=== PATIENT | male | born 1980 | race Caucasian/White ===

== ENCOUNTER 2020-07-09 17:59 | Inpatient (IN) | payer OTHER, MEDICAID, SELFPAY ==
[~2020-07-09] VITALS: Ht 154.9 cm; Wt 78.0 kg
[2020-07-09 18:22] VITALS: BP_SYST 111
--- NOTE | 2020-07-09 18:30 | NUR ---
Pt O2 89 % room air, pt placed on 2L NC, O2 increased to 95 %.
--- NOTE | 2020-07-09 18:30 | NUR ---
Patient triaged and placed in waiting room. VSS and patient appears in no acute distress at this time. Accompanied by family memer, awaiting available bed, and MD notified of need for MSE.
[2020-07-09 18:47] LABS: BASOPHILS % (AUTO) 0.2 % (0.0-2.0); HEMATOCRIT 43.7 % (36-54); HEMOGLOBIN 14.6 g/dL (14.0-18.0); LYMPHOCYTES # (AUTO) 1.5 K/uL (1.0-5.5); LYMPHOCYTES % (AUTO) 32.2 % (20.5-51.5); MEAN CORPUSCULAR HEMOGLOBIN 33 pg (27-31); MEAN CORPUSCULAR HGB CONC 33 % (32-36); MEAN CORPUSCULAR VOLUME 97 fL (79.0-98.0); MONOCYTES # (AUTO) 0.4 K/uL (0.0-1.0); MONOCYTES % (AUTO) 9.7 % (1.7-9.3); NEUTROPHILS # (AUTO) 2.6 K/uL (1.8-7.7); NEUTROPHILS % (AUTO) 57.9 % (40.0-70.0); PLATELET COUNT (AUTO) 240 K/uL (130-430); RED BLOOD CELL COUNT(AUTO) 4.49 MIL/uL (4.2-6.2); RED CELL DISTRIBUTION WIDTH 14.1 % (9.0-15.0); WHITE BLOOD COUNT (AUTO) 4.6 K/uL (4.8-10.8)
[2020-07-09 19:03] LABS: CREATININE 1.32 mg/dL (0.55-1.30); POTASSIUM 3.8 mmol/L (3.5-5.1)
--- NOTE | 2020-07-09 19:05 | NUR ---
Report given to Kaylan PABON
[2020-07-09 19:08] LABS: C-REACTIVE PROTEIN QUANT 4.8 mg/dL (0-0.5)
[2020-07-09 19:18] LABS: ALBUMIN 3.2 g/dL (3.4-4.8); TOTAL BILIRUBIN 0.6 mg/dL (0.0-1.0)
--- NOTE | 2020-07-09 19:20 | NUR ---
PT BIB FAMILY FROM HOME C/O OF DRY COUGH THAT PREVIOUSLY PRODUCED ORANGE COLOR SPUTUM FOR 3 DAYS. PT IS NAUSEOUS, VOMITING, AND HAS HAD DIARRHEA SINCE YESTERDAY. PT WAS EXPOSED TO COVID 6 DAYS AGO. PT PULSE OX AT HOME WAS 85% ON ROOM AIR. PT HAS DOWN SYNDROME AND IS UNABLE TO COMMUNICATE HIMSELF.
--- NOTE | 2020-07-09 19:36 | NUR ---
ER Dr. AWAN at bedside examining patient.
[2020-07-09 19:52] LABS: CKMB RELATIVE INDEX 0.2 (0.0-2.9); CREATINE KINASE MB 2.5 ng/mL (0-3.6)
[2020-07-09 20:14] LABS: PROTHROMBIN TIME 10.1 SECS (9.5-12.5)
[2020-07-09] MEDS ORDERED: AZITHROMYCIN 500 MG in NS 250 ML IV ONE (21:30)
[2020-07-09] MEDS ORDERED: cefTRIAXone 1 GM IVPB PREMIX 50 ML IV ONE (21:30)
--- NOTE | 2020-07-09 21:46 | NUR ---
Patient will be admitted to care of [facility]. Admitted to TELE unit. Will go to room 123B. Belongings list completed. Complete and up to date summary report printed. SBAR report to be given at bedside with opportunity for questions.
--- NOTE | 2020-07-09 22:00 | NUR ---
Patient's code status is FULL CODE per primary caregiver, paperwork completed and placed in chart.
--- NOTE | 2020-07-09 22:23 | NUR ---
Patient to ER CHAIR RASHARD.
--- NOTE | 2020-07-09 22:35 | NUR ---
# 20 gauge angiocath placed to LEFT HAND. Use of asceptic technique. Opsite placed over site. Blood return noted. Flushed with 10 cc of normal saline. No evidence of infiltration noted. Patient tolerated well.
[2020-07-09] MEDS: D5/0.45 NS 1,000 ML IV SCH (22:55)
[2020-07-09] MEDS ORDERED: AZITHROMYCIN 500 MG/VIAL (ZITHROMAX) IV ONE (22:57)
--- NOTE | 2020-07-09 23:03 | NUR ---
PT UNABLE TO GIVE URINE RIGHT NOW.
--- NOTE | 2020-07-09 23:08 | NUR ---
DR. CANCHOLA AT [facility] TO EVALUATE PATIENT.
--- NOTE | 2020-07-09 23:39 | NUR ---
Transfer to TELE via ACLS protocol. Licensed nurse present. IV present no signs or symptoms of infiltration.
[2020-07-09 23:50] VITALS: BP_SYST 127
--- NOTE | 2020-07-09 23:50 | NUR ---
ADMISSION NOTE Received patient from ER via WHEELCHAIR, received report from TALAT PABON. Patient admitted with diagnosis of COVID PNA. Patient oriented to hospital routine, call light, toileting and safety.
--- NOTE | 2020-07-10 00:15 | NUR ---
spoke with patients sister to give her an update on moving patient to TELE floor. she also gave me a list of medications patient takes at home daily.
--- NOTE | 2020-07-10 00:16 | NUR ---
patient able to eat regular foods on his own.
[2020-07-10] MEDS ORDERED: GLIP10TA21 PO (00:18)
[2020-07-10] MEDS ORDERED: DIPH25TA62 PO (00:19)
[2020-07-10] MEDS ORDERED: BENZ0.5T43 PO (00:19)
[2020-07-10] MEDS ORDERED: LEVO50TA8 PO (00:19)
[2020-07-10] MEDS ORDERED: ATOR20TA64 PO (00:19)
[2020-07-10] MEDS ORDERED: ARIP15TA PO (00:19)
--- NOTE | 2020-07-10 00:19 | NUR ---
Medication reconciliation completed with information provided by patients sister. Any prior medication reconciliation on file was reviewed and corrected.
--- NOTE | 2020-07-10 00:30 | NUR ---
PAGED DR MELGOZA
--- NOTE | 2020-07-10 00:51 | NUR ---
CONSULTATION PAGED/CALLED Reason for Consultation: COVID PNA Person Who was Notified: ER NOTIFIED DOCTOR Consulting Physician: DR. GRIJALVA Technical Sales Consultant Specialty: ID Ordering Physician: ABAD
--- NOTE | 2020-07-10 00:52 | NUR ---
CONSULTATION PAGED/CALLED Reason for Consultation: COVID PNA Person Who was Notified: ER NOTIFIED EXCHANGE Consulting Physician: DR CANCHOLA Technical Writing Lead/Mgr Specialty: Ordering Physician: ABAD
--- NOTE | 2020-07-10 01:00 | NUR ---
RN ROUNDS PATIENT TOLERATING IVF TO LEFT HAND #20, PATIENT CONFUSED AND NONVERBAL/GARBLED SPEECH. PATIENT CONTINUES TO CALL FOR HIS MOM. REORIENTED PATIENT.
--- NOTE | 2020-07-10 01:30 | NUR ---
SPOKE WITH FAMILY CALLED SISTER MANDI , to clarify patients home medications. Sister states she wants to facetime with patient in the am. Will endorse to AM nurse.
--- NOTE | 2020-07-10 04:30 | NUR ---
PAGED DR MELGOZA. LEFT VOICE MAIL MESSAGE.'
--- NOTE | 2020-07-10 04:35 | NUR ---
PAGED PAGED DOCTOR MELGOZA
--- NOTE | 2020-07-10 06:40 | NUR ---
CLOSING NOTES. PATIENT STABLE AT THIS TIME. RESIRATIONS EVEN AND UNLABORED ON OXYGEN 3L NC. OXYGEN SATURATION 94% IV SITE REMAINS INTACT WITH NO SIGNS OF INFILTRATION NOTED. SAFETY MEASURES AND ISOLATION PRECAUTIONS IN PLACE. BED LOCKED IN LOW POSITION WITH CALL LIGHT IN REACH. WILL CONTINUE TO MONITOR UNTIL ENDORSED TO AM NURSE.
[2020-07-10] MEDS ORDERED: PROMETHAZINE-DM 6.25 MG-15 MG/5 ML UDC PO PRN (07:45)
[2020-07-10] MEDS ORDERED: ACETAMINOPHEN 325 MG TABLET PO PRN (07:45)
[2020-07-10 07:54] VITALS: BP_SYST 117
[2020-07-10 07:59] LABS: BASOPHILS % (AUTO) 0.2 % (0.0-2.0); EOSINOPHILS % (AUTO) 0.1 % (0.0-4.0); HEMATOCRIT 39.8 % (36-54); HEMOGLOBIN 13.4 g/dL (14.0-18.0); LYMPHOCYTES # (AUTO) 2.4 K/uL (1.0-5.5); LYMPHOCYTES % (AUTO) 48.2 % (20.5-51.5); MEAN CORPUSCULAR HEMOGLOBIN 33 pg (27-31); MEAN CORPUSCULAR HGB CONC 34 % (32-36); MEAN CORPUSCULAR VOLUME 97 fL (79.0-98.0); MONOCYTES # (AUTO) 0.6 K/uL (0.0-1.0); MONOCYTES % (AUTO) 12.9 % (1.7-9.3); NEUTROPHILS # (AUTO) 1.9 K/uL (1.8-7.7); NEUTROPHILS % (AUTO) 38.6 % (40.0-70.0); PLATELET COUNT (AUTO) 233 K/uL (130-430); RED BLOOD CELL COUNT(AUTO) 4.11 MIL/uL (4.2-6.2); RED CELL DISTRIBUTION WIDTH 14.2 % (9.0-15.0)
--- NOTE | 2020-07-10 08:00 | NUR ---
Patient awake/alert no SOB but oxygen saturation on 2.5 liters/nc 92%, follow simple instruction pleasant denies any pain , tolerates all oral intake/medication , keep with IV hydration, safety/fall precaution initiated.
[2020-07-10] MEDS: LEVOTHYROXINE SODIUM 0.05 MG TABLET PO SCH (08:06)
[2020-07-10] MEDS: glipiZIDE XL 5 MG TAB ( GLUCOTROL XL) PO SCH ×2 (08:06→17:06)
[2020-07-10] MEDS: BENZTROPINE MESYLATE 1 MG TABLET PO SCH ×2 (08:08→20:31)
[2020-07-10] MEDS: ARIPiprazole 5 MG TAB PO SCH (08:08)
[2020-07-10] MEDS ORDERED: ARIPiprazole 5 MG TAB ONE (08:08)
--- NOTE | 2020-07-10 08:33 | NUR ---
Nutrition Update Eulogio Scale 18 noted. Pt admitted for COVID pneumonia. Diet: [facility] BMI: 32.5 kg/m2 RD to follow per nutrition care standards. Addendum: 07/10/20 at [address] CORRECTION: Diet: [facility], mechanical soft
[2020-07-10] MEDS: ALBUTEROL MDI INHALATION 8 GM INH INH SCH ×4 (09:00→21:00)
[2020-07-10 09:02] LABS: CALCIUM 7.8 mg/dL (8.4-11.0); CREATININE 1.13 mg/dL (0.55-1.30); POTASSIUM 3.5 mmol/L (3.5-5.1)
[2020-07-10 12:00] VITALS: BP_SYST 101
[2020-07-10 15:42] VITALS: BP_SYST 120
--- NOTE | 2020-07-10 15:46 | NUR ---
SS notes: SOCIAL MEDIA CAMPAIGN MANAGER was referred by CM to see patient for DCP. Collateral with sister, Sadia @ [phone]. Demographic info confirmed. Pt is a 40 y/o single male with down syndrome who came in to ED for cough. Sadia stated, pt's niece tested Covid positive last week and has been quarantining at home, but when patient started coughing yesterday, pt's PCP advised them to bring pt to ED. Pt lives with sister Sadia, her spouse and her children. Pt is independent with ambulation, but needs help with bathing, feeding self and uses a diaper. Pt does not utilize any DME. Pt does not have any mental health diagnoses and no history of substance use/abuse. Pt's income is SSI and Sadia helps manage his finances. Pt receives IHSS of 160/month and Sadia is his provided. If SNF or HHS is indicated for discharge, Sadia does not have a preference on which agency. SS will remain available.
--- NOTE | 2020-07-10 15:49 | NUR ---
PATIENT RESTING: Patient resting quietly. No acute distress noted. Vital signs within normal range.
[2020-07-10] MEDS: ATORVASTATIN 20 MG TABLET PO SCH (17:05)
[2020-07-10 20:00] VITALS: BP_SYST 112
[2020-07-10] MEDS: DIPHENHYDRAMINE HCL 50 MG CAPSULE PO SCH (20:31)
[2020-07-10] MEDS: cefTRIAXone 1 GM in D5W 50 ML IV SCH (20:31)
[2020-07-10] MEDS: AZITHROMYCIN 500 MG in NS 250 ML IV SCH (20:31)
--- NOTE | 2020-07-10 21:00 | NUR ---
MEDICATION PASS PATIENT TOLERATED MEDICATIONS ORDERED. TOLERATES PO MEDICATIONS ONE AT A TIME WITH SMALL AMOUNT OF WATER. V/S STABLE. NO DISTRESS NOTED AT THIS TIME.
--- NOTE | 2020-07-11 | NUR ---
RN ROUNDS PATIENT AWAKE, SITTING UP IN BED, WATCHING TV. NO SIGNS OF SOB NOTED. PATIENT DRY WITH NO VOID NOTED THROUGHOUT SHIFT SO FAR. WILL CONTINUE TO MONITOR.
[2020-07-11 04:00] VITALS: BP_SYST 115
[2020-07-11] MEDS: LEVOTHYROXINE SODIUM 0.05 MG TABLET PO SCH (05:39)
--- NOTE | 2020-07-11 06:30 | NUR ---
CLOSING NOTE PATIENT AWAKE IN BED. MINIMAL URINE NOTED IN DIAPER. PATIENT GUARDED AND ABDOMINAL PELVIS SENSITIVE TO DEEP PALPATION. WILL CONTINUE TO MONITOR UNTIL ENDORSED TO AM NURSE. SAFETY, FALL AND ISOLATION PRECAUTIONS REMAIN IN PLACE. BED LOCKED IN LOW POSITION WITH CALL LIGHT IN REACH.
--- NOTE | 2020-07-11 06:50 | NUR ---
CRITICAL LAB RESULT CALLED DR GRIJALVA EXCHANGE TO REPORT POSITIVE COVID PCR, NO ANSWER. WILL ENDORSE TO AM NURSE.
[2020-07-11] MEDS: BENZTROPINE MESYLATE 1 MG TABLET PO SCH ×2 (07:56→20:17)
[2020-07-11] MEDS: ARIPiprazole 5 MG TAB PO SCH (07:56)
[2020-07-11] MEDS: ATORVASTATIN 20 MG TABLET PO SCH ×2 (07:56→17:55)
[2020-07-11] MEDS: glipiZIDE XL 5 MG TAB ( GLUCOTROL XL) PO SCH ×2 (07:56→17:55)
[2020-07-11 08:00] VITALS: BP_SYST 119
--- NOTE | 2020-07-11 10:15 | NUR ---
US DE LA CRUZ WAS ASKED TO TELL CM BURKETT LEADS ARE OFF, PT OFF MONITORING.
[2020-07-11 11:33] VITALS: BP_SYST 117
[2020-07-11] MEDS: D5/0.45 NS 1,000 ML IV SCH ×2 (13:45→20:16)
[2020-07-11 16:41] VITALS: BP_SYST 131
--- NOTE | 2020-07-11 19:30 | NUR ---
initial notes: pt is awake, alert. sitting in bed, no sign of pain, not distress, no sob. stable. on o2 2l via nc. ivf infusing to left hand gauge 20- intact and patent. pt is mentally challenged. call light in reach, side rails up. low bed position. bed alarm on and lock. covid isolation. will monitor.
[2020-07-11 20:14] VITALS: BP_SYST 114
[2020-07-11] MEDS: cefTRIAXone 1 GM in D5W 50 ML IV SCH (20:17)
[2020-07-11] MEDS: DIPHENHYDRAMINE HCL 50 MG CAPSULE PO SCH (20:17)
[2020-07-11] MEDS: AZITHROMYCIN 500 MG in NS 250 ML IV SCH (21:15)
--- NOTE | 2020-07-11 22:00 | NUR ---
still awake, sitting in bed, stable. no pain. ivf infusing well. safety precaution in place. covd isoaltion.
[2020-07-11] MEDS ORDERED: DECADRON 4 MG TABLET ONE (23:17)
[2020-07-11] MEDS: DECADRON 4 MG TABLET PO SCH (23:19)
[2020-07-12] VITALS: BP_SYST 111
--- NOTE | 2020-07-12 | NUR ---
still awake, no pain. no acute distress. vital sign stable. needs attended, safety precaution in place. covid isolation./
--- NOTE | 2020-07-12 02:00 | NUR ---
sleeping, comfortable, no pain, no sob, stable. sating 100% on o2 2l via nc. ivf infusing well. call light in reach, safety precaution in place, low bed position, bed alarm on. will continue to monitor.
[2020-07-12] MEDS: LEVOTHYROXINE SODIUM 0.05 MG TABLET PO SCH (06:07)
--- NOTE | 2020-07-12 06:52 | NUR ---
closing: pt is resting, wakes up. assisted pt to stand up. steady. pt void on the floor. clean pt and back to bed. change chux. stable the whole shift. ivf infusing well. needs attended the whole shift. safety precaution in place. side rails up. low bed position, bed alarm on. will give sbar report to am rn.
[2020-07-12 07:44] VITALS: BP_SYST 120
[2020-07-12] MEDS: glipiZIDE XL 5 MG TAB ( GLUCOTROL XL) PO SCH ×2 (08:03→17:43)
[2020-07-12] MEDS: ARIPiprazole 5 MG TAB PO SCH (08:04)
[2020-07-12] MEDS: BENZTROPINE MESYLATE 1 MG TABLET PO SCH ×2 (08:04→21:37)
[2020-07-12] MEDS: ENOXAPARIN SODIUM 40 MG/0.4 ML SYRINGE SUBCUT SCH (08:05)
[2020-07-12] MEDS: ASCORBIC ACID 500 MG TABLET PO SCH ×2 (08:06→21:36)
[2020-07-12 09:52] LABS: BASOPHILS % (AUTO) 0.1 % (0.0-2.0); HEMATOCRIT 43.1 % (36-54); HEMOGLOBIN 14.7 g/dL (14.0-18.0); LYMPHOCYTES # (AUTO) 0.9 K/uL (1.0-5.5); MEAN CORPUSCULAR HEMOGLOBIN 33 pg (27-31); MEAN CORPUSCULAR HGB CONC 34 % (32-36); MEAN CORPUSCULAR VOLUME 97 fL (79.0-98.0); MONOCYTES # (AUTO) 0.1 K/uL (0.0-1.0); MONOCYTES % (AUTO) 2.5 % (1.7-9.3); NEUTROPHILS # (AUTO) 4.2 K/uL (1.8-7.7); NEUTROPHILS % (AUTO) 80.4 % (40.0-70.0); PLATELET COUNT (AUTO) 280 K/uL (130-430); RED BLOOD CELL COUNT(AUTO) 4.46 MIL/uL (4.2-6.2); RED CELL DISTRIBUTION WIDTH 14.2 % (9.0-15.0); WHITE BLOOD COUNT (AUTO) 5.2 K/uL (4.8-10.8)
[2020-07-12] MEDS: CHOLECALCIFEROL (VITAMIN D3) 5,000 UNIT TABLET PO SCH (10:53)
[2020-07-12 11:35] VITALS: BP_SYST 116
[2020-07-12] MEDS: D5/0.45 NS 1,000 ML IV SCH (14:19)
[2020-07-12 16:00] VITALS: BP_SYST 123
--- NOTE | 2020-07-12 17:06 | NUR ---
PATIENT OXYGEN SATURATION STABLE TO 95 TO 94 % WITH 2 LITERS/OXYGEN , NO SOB , OCCASIONAL COUGH ,AFEBRILE ,NEEDS ATTENDED, SPOKE TO SISTER ROQUE INFORMED REGARDING PATIENT PROGRESS AND PLAN OF CARE.SAFETY/FALL PRECAUTION INITIATED.
[2020-07-12] MEDS: ATORVASTATIN 20 MG TABLET PO SCH (17:43)
--- NOTE | 2020-07-12 19:50 | NUR ---
initial notes: pt is awake, alert. sitting in bed, no sign of pain, not distress, no sob. stable. on o2 2l via nc. ivf infusing to left hand gauge 20- intact and patent. pt is mentally challenged. assisted pt to get out of bed and use urinal. pt void 950cc of yellow urine. cank to bed. call light in reach, side rails up. low bed position. bed alarm on and lock. covid isolation. will monitor.
[2020-07-12 19:53] VITALS: BP_SYST 117
[2020-07-12] MEDS: DIPHENHYDRAMINE HCL 50 MG CAPSULE PO SCH (21:36)
[2020-07-12] MEDS: AZITHROMYCIN 500 MG in NS 250 ML IV SCH (21:36)
[2020-07-12] MEDS: cefTRIAXone 1 GM in D5W 50 ML IV SCH (21:36)
[2020-07-12] MEDS: DECADRON 4 MG TABLET PO SCH (21:37)
--- NOTE | 2020-07-12 22:00 | NUR ---
pt is sitting in bed. watching tv. stable. no sign of pain, not distress, safety precaution in place. bed alarm on. will monitor.
--- NOTE | 2020-07-13 | NUR ---
pt still awake, sitting in bed. no pain. no acute distress. vital sign stable. needs attended, safety precaution in place. covid isolation. bed alarm on.
[2020-07-13 00:20] VITALS: BP_SYST 125
--- NOTE | 2020-07-13 01:51 | NUR ---
still awake,sitting in bed. no pain. no acute distress. vital sign stable. needs attended, safety precaution in place. covid isolation.
--- NOTE | 2020-07-13 04:16 | NUR ---
sleeping, comfortable on his side. no pain, no sob, stable. ivf infusing well. call light in reach, safety precaution in place, low bed position, bed alarm on. will continue to monitor.
[2020-07-13] MEDS: D5/0.45 NS 1,000 ML IV SCH (05:16)
--- NOTE | 2020-07-13 05:33 | NUR ---
pt wakes up. assisted to bathroom to void, pt sit to toilet. no bm, pt void to urinal. back to bed, steady gait. gown change. pt tolerate well. needs attended, safety precaution. covid isolation. bed alarm on.
[2020-07-13] MEDS: LEVOTHYROXINE SODIUM 0.05 MG TABLET PO SCH (05:45)
--- NOTE | 2020-07-13 06:59 | NUR ---
closing: pt is sleeping, not distress, no pain. stable the whole shift. needs attended the whole shift. call light in reach. low bed position.bed alarm on. will give sbar report to am rn.
[2020-07-13 08:00] VITALS: BP_SYST 112
--- NOTE | 2020-07-13 08:00 | NUR ---
Initial notes In bed, awake, alert. Denies any pain or discomfort. IVF infusing well. Afebrile, on O2 3l, saturating well. bed alarm on. will continue to monitor.
[2020-07-13] MEDS: ASCORBIC ACID 500 MG TABLET PO SCH ×2 (09:03→20:35)
[2020-07-13] MEDS: BENZTROPINE MESYLATE 1 MG TABLET PO SCH ×2 (09:03→20:36)
[2020-07-13] MEDS: glipiZIDE XL 5 MG TAB ( GLUCOTROL XL) PO SCH ×2 (09:03→17:40)
[2020-07-13] MEDS ORDERED: ARIPiprazole 5 MG TAB ONE (09:06)
[2020-07-13] MEDS: ARIPiprazole 5 MG TAB PO SCH (09:14)
[2020-07-13] MEDS: CHOLECALCIFEROL (VITAMIN D3) 5,000 UNIT TABLET PO SCH (09:14)
[2020-07-13] MEDS: ENOXAPARIN SODIUM 40 MG/0.4 ML SYRINGE SUBCUT SCH (09:15)
--- NOTE | 2020-07-13 10:00 | NUR ---
Notes- Eat all of his breakfast, able to feed self. patient take all his medications.
[2020-07-13 11:28] VITALS: BP_SYST 133
--- NOTE | 2020-07-13 13:00 | NUR ---
notes Eat all of his lunch. No distress noted,
--- NOTE | 2020-07-13 13:26 | NUR ---
Dietitian Recommendations *Recommend: add Glucerna BID. *Continue CCHO Mechanical soft diet. *Encourage pt to increase PO. Please see Nutritional Assessment for details. OLY, RD
[2020-07-13 15:27] VITALS: BP_SYST 115
--- NOTE | 2020-07-13 15:44 | NUR ---
Notes- resting in bed, patient able to void standing up. patient also ambulate with assistance. No distress noted. calm. bed alarm on.
--- NOTE | 2020-07-13 16:27 | NUR ---
discharge planning- Dr. David armass ZOEY [facility] health services. person to contact Fox Funes at [phone] or [phone].
--- NOTE | 2020-07-13 17:35 | NUR ---
Discharge Planning: DCP faxed pt referral to [facility] and [facility] for home oxygen. DCP will follow up .
[2020-07-13] MEDS: ATORVASTATIN 20 MG TABLET PO SCH (17:40)
--- NOTE | 2020-07-13 19:30 | NUR ---
OPENING NOTE RECEIVED SBAR REPORT FROM OFF COMING RN FOR CONTINUITY OF CARE.
[2020-07-13] MEDS: cefTRIAXone 1 GM in D5W 50 ML IV SCH (20:34)
[2020-07-13] MEDS: DECADRON 4 MG TABLET PO SCH (20:35)
[2020-07-13] MEDS: DIPHENHYDRAMINE HCL 50 MG CAPSULE PO SCH (20:35)
[2020-07-13 21:00] VITALS: BP_SYST 115
[2020-07-13] MEDS: AZITHROMYCIN 500 MG in NS 250 ML IV SCH (21:00)
--- NOTE | 2020-07-13 21:30 | NUR ---
PT LAYING IN BED, A/O X 2 (PERSONA ND PLACE). PT MOSTLY NON-VERBAL, CAN SAY YES AND NO WELL SIMPLE WORDS OCCASIONALLY. PT DENIES ANY PAIN OR DISCOMFORT D5 1/NS INFUSING @ 50 ML/HR. ASSISTED PT TO STAND AT BEDSIDE TO USE URINAL, PT TOLERATED WELL. PT ON 3L O2 VIA NC, OXYGEN SATURATIONS ABOVE 90%. CALL LIGHT WITHIN REACH. BED LOCKED AND IN LOWEST POSITION, SAFETY PRECAUTIONS IN PLACE. WILL CONTINUE TO MONITOR AND ASSESS.
[2020-07-14 01:00] VITALS: BP_SYST 101
--- NOTE | 2020-07-14 01:30 | NUR ---
PY LAYING IN BED, AWAKE. PT DENIES AND PAIN OR DISCOMFORT. PT ON 3 L O2 VIA NC. CALL LIGHT WITHIN REACH. BED LOCKED AND IN LOWEST POSITION, SAFETY PRECAUTION IN PLACE. WILL CONTINUE TO MONITOR AND ASSESS.
[2020-07-14] MEDS: D5/0.45 NS 1,000 ML IV SCH ×2 (01:45→21:45)
--- NOTE | 2020-07-14 06:00 | NUR ---
PT LAYING IN BED, AWAKE. PT DENIES ANY PAIN OR DISCOMFORT. PT ON 3L O2 VIA NC. ASSISTED PT WITH PARTIAL BED BATH AND LINEN CHANGE, PT TOLERATED WELL. CALL LIGHT WITHIN REACH. SAFETY PRECAUTIONS IN PLACE. WILL CONTINUE TO MONITOR AND ASSESS.
[2020-07-14] MEDS: LEVOTHYROXINE SODIUM 0.05 MG TABLET PO SCH (06:14)
[2020-07-14 07:10] LABS: BASOPHILS % (AUTO) 0.2 % (0.0-2.0); MONOCYTES # (AUTO) 0.4 K/uL (0.0-1.0)
[2020-07-14 07:13] LABS: HEMATOCRIT 39.3 % (36-54); HEMOGLOBIN 13.2 g/dL (14.0-18.0); LYMPHOCYTES # (AUTO) 1.3 K/uL (1.0-5.5); LYMPHOCYTES % (AUTO) 11.4 % (20.5-51.5); MEAN CORPUSCULAR HEMOGLOBIN 33 pg (27-31); MEAN CORPUSCULAR HGB CONC 34 % (32-36); MEAN CORPUSCULAR VOLUME 97 fL (79.0-98.0); MONOCYTES % (AUTO) 3.2 % (1.7-9.3); NEUTROPHILS # (AUTO) 9.8 K/uL (1.8-7.7); NEUTROPHILS % (AUTO) 85.2 % (40.0-70.0); PLATELET COUNT (AUTO) 315 K/uL (130-430); RED BLOOD CELL COUNT(AUTO) 4.05 MIL/uL (4.2-6.2); RED CELL DISTRIBUTION WIDTH 14.1 % (9.0-15.0); WHITE BLOOD COUNT (AUTO) 11.5 K/uL (4.8-10.8)
--- NOTE | 2020-07-14 07:32 | NUR ---
CLOSING NOTE ENDORSED SBAR REPORT TO ONCOMING RN FOR CONTINUITY OF CARE.
[2020-07-14 08:00] VITALS: BP_SYST 132
[2020-07-14] MEDS: glipiZIDE XL 5 MG TAB ( GLUCOTROL XL) PO SCH ×2 (09:52→17:15)
[2020-07-14] MEDS: ASCORBIC ACID 500 MG TABLET PO SCH ×2 (09:52→21:00)
[2020-07-14] MEDS: BENZTROPINE MESYLATE 1 MG TABLET PO SCH ×2 (09:52→21:00)
[2020-07-14] MEDS: ENOXAPARIN SODIUM 40 MG/0.4 ML SYRINGE SUBCUT SCH (09:53)
[2020-07-14 09:55] LABS: CREATININE 1.18 mg/dL (0.55-1.30); POTASSIUM 4.1 mmol/L (3.5-5.1)
[2020-07-14] MEDS: ARIPiprazole 5 MG TAB PO SCH (09:56)
[2020-07-14] MEDS: CHOLECALCIFEROL (VITAMIN D3) 5,000 UNIT TABLET PO SCH (09:56)
[2020-07-14 11:29] VITALS: BP_SYST 139
--- NOTE | 2020-07-14 13:00 | NUR ---
Note Pt's sister called about pt being discharged home today. Notified pt's sister Dr Hernandez has not been in at this time. When MD comes to floor and discharges pt, RN will notify her. Update on pt's status given at this time.
[2020-07-14 16:00] VITALS: BP_SYST 118
[2020-07-14] MEDS: ATORVASTATIN 20 MG TABLET PO SCH (17:15)
--- NOTE | 2020-07-14 18:40 | NUR ---
Note Pt's sister called again to see if there was a discharge order for pt to go home. Notified that Dr Hernandez has still not come to the floor. Pt was checked on q1' and PRN all shift for needs and care. Pt was maintained with safety and isolation precautions all shift. Pt was maintained with safety and isolation precautions all shift. IV in left hand intact and patent infusing IVF's well. No needs noted at this time. Call light within reach.
--- NOTE | 2020-07-14 19:30 | NUR ---
INITIAL NOTE RECEIVED SBAR REPORT FROM NURSE FOR CONTINUITY OF CARE.
[2020-07-14 20:00] VITALS: BP_SYST 130
[2020-07-14] MEDS: cefTRIAXone 1 GM in D5W 50 ML IV SCH (21:00)
[2020-07-14] MEDS: AZITHROMYCIN 500 MG in NS 250 ML IV SCH (21:00)
[2020-07-14] MEDS: DIPHENHYDRAMINE HCL 50 MG CAPSULE PO SCH (21:00)
[2020-07-14] MEDS: DECADRON 4 MG TABLET PO SCH (21:00)
[2020-07-15 04:00] VITALS: BP_SYST 124
[2020-07-15] MEDS: LEVOTHYROXINE SODIUM 0.05 MG TABLET PO SCH (05:51)
[2020-07-15] MEDS: CHOLECALCIFEROL (VITAMIN D3) 5,000 UNIT TABLET PO SCH (09:24)
[2020-07-15] MEDS: glipiZIDE XL 5 MG TAB ( GLUCOTROL XL) PO SCH (09:24)
[2020-07-15] MEDS: BENZTROPINE MESYLATE 1 MG TABLET PO SCH (09:25)
[2020-07-15] MEDS: ASCORBIC ACID 500 MG TABLET PO SCH (09:28)
[2020-07-15] MEDS ORDERED: ARIPiprazole 5 MG TAB ONE (09:28)
[2020-07-15] MEDS: ARIPiprazole 5 MG TAB PO SCH (09:28)
[2020-07-15 11:02] VITALS: BP_SYST 126
[2020-07-15] MEDS: ENOXAPARIN SODIUM 40 MG/0.4 ML SYRINGE SUBCUT SCH (11:39)
[2020-07-15 15:29] VITALS: BP_SYST 115
--- NOTE | 2020-07-15 16:40 | NUR ---
ID MD DR KELIN GRIJALVA WAS CALLED, RE: TO CONFIRM MEDICATION ON DISCHARGE TO HOME. SPOKE TO ÓSCAR.
[2020-07-15 17:09] VITALS: BP_SYST 115
[2020-07-15] MEDS ORDERED: LEVAQUIN PO (17:22)
[2020-07-15] MEDS ORDERED: DEC4 PO (17:22)
--- NOTE | 2020-07-15 17:27 | NUR ---
Per sister of the patient Sadia she was contacted by the radiology assistant of [facility] prescription and home health will be arranged by the group of [facility].
--- NOTE | 2020-07-15 18:35 | NUR ---
D/C Patient Patient given medication reconciliation form and D/C instructions. Exit Care provided. given to sister of the patient verbalized understanding. MD discussed with patient the results and treatment provided. Ambulatory with assist for discharge to home. Patient in stable condition, ID band removed. IV catheter removed, intact and dressing applied, no active bleeding. All belongings sent with patient.
--- NOTE | 2020-07-16 10:30 | NUR ---
Discharge Planning: DCP spoke to [facility] patient accepted and [facility] for home oxygen only servicing [place] patient at this time. Patient oxygen order canceled per CM.
== END 2020-07-15 18:30 | disposition home health service (06) | DRG 177 ==
LOC: SED 17:59 → STU 21:38 → SMU 07-13 17:18
PROVIDERS: ADMIT Internal Medicine; ATTEND Internal Medicine
DX: U07.1 COVID-19 (principal); J12.89 Other viral pneumonia; J96.01 Acute respiratory failure with hypoxia; M62.82 Rhabdomyolysis; J90 Pleural effusion, not elsewhere classified; Z20.828 Contact with and (suspected) exposure to other viral communicable diseases; F79 Unspecified intellectual disabilities; I10 Essential (primary) hypertension; Q90.9 Down syndrome, unspecified
CPT/HCPCS: 36415; 36600; 71045; 80048; 80053; 82550-TC; 82553-TC; 82728; 82803-TC; 83605; 83615-TC; 83880; 84484; 85025; 85379; 85384-TC; 85610-TC; 85730-TC; 86140; 86886; 86900; 86901; 87040-TC; 93005; 96365; 96367; 99291; J0456; J0696; J1650; J7050; J7060; J8540; Q0163; U0003

== ENCOUNTER 2023-07-04 14:01 | Emergency (ER) | payer OTHER ==
[~2023-07-04] VITALS: Ht 162.6 cm; Wt 82.6 kg
[~2023-07-04 14:01] MED LIST: ARIP15TA PO; ATOR20TA64 PO; BENZ0.5T3 PO; DEC4 PO; DIPH25TA62 PO; GLIP10TA21 PO; LEVAQUIN PO; LEVO50TA8 PO
[2023-07-04 14:28] VITALS: BP_SYST 107; PULSE 86; RESP 22; TEMP 98.3; O2SAT 98
[2023-07-04 15:10] LABS: INFLUENZA TYPE A Negative (NEGATIVE); INFLUENZA TYPE B NEGATIVE (NEGATIVE)
[2023-07-04] MEDS ORDERED: D-ME120S20 PO (15:59)
[2023-07-04] MEDS ORDERED: ZIT250 PO (15:59)
[2023-07-04] MEDS ORDERED: IBUP-1969 PO (15:59)
[2023-07-04 16:48] VITALS: BP_SYST 107; PULSE 86; RESP 22; TEMP 98.3; O2SAT 98
== END 2023-07-04 17:45 | disposition home or self-care (01) ==
LOC: SED 14:01
DX: J40 Bronchitis, not specified as acute or chronic (principal); Z20.822 Contact with and (suspected) exposure to COVID-19; Z79.899 Other long term (current) drug therapy
CPT/HCPCS: 36415; 71045; 99284